=== PATIENT | male | born 1985 | race Caucasian/White ===

== ENCOUNTER 2016-12-15 06:09 | Day surgery (SDC) | payer OTHER ==
[2016-12-15] MEDS ORDERED: ceFAZolin 2 GM/50 ML 50 ML IV ONE (06:30)
[2016-12-15] MEDS ORDERED: ACETAMINOPHEN 1,000 MG/100 ML 100 ML IV ONE (06:30)
[2016-12-15] MEDS ORDERED: CELECOXIB 100 MG CAPSULE PO ONE (06:31)
[2016-12-15] MEDS ORDERED: LACTATED RINGERS 1,000 ML IV ONE (06:45)
[2016-12-15] MEDS ORDERED: SCOPOLAMINE PATCH TOP ONE (07:19)
[2016-12-15] MEDS ORDERED: ROPIVACAINE 0.2% PF 10 ML VIAL SUBQ ONE ×2 (07:24→09:03)
[2016-12-15] MEDS ORDERED: BUPIVACAINE 0.5% PF 10 ML VIAL IM ONE ×3 (07:24→09:03)
[2016-12-15] MEDS ORDERED: MORPHINE PF 5 MG/10 ML AMP SUBQ ONE ×2 (07:24→09:03)
[2016-12-15] MEDS ORDERED: PROPOFOL 200 MG/20 ML VIAL IVP ONE (08:00)
[2016-12-15] MEDS ORDERED: LIDOCAINE-MPF 2% 5 ML VIAL IM ONE (08:00)
[2016-12-15] MEDS ORDERED: ONDANSETRON 4 MG/2 ML VIAL IVP ONE (08:00)
[2016-12-15] MEDS ORDERED: DEXAMETHASONE 4 MG/ML VIAL IVP ONE (08:00)
[2016-12-15] MEDS ORDERED: HYDROmorphone 1 MG/ML SYRINGE IVP ONE (08:00)
[2016-12-15] MEDS ORDERED: MIDAZOLAM 2 MG/2 ML VIAL IVP ONE (08:00)
[2016-12-15] MEDS: fentaNYL 100 MCG/2 ML VIAL ONE ×2 (09:38→09:45)
[2016-12-15] MEDS ORDERED: oxyCOD/ACETAMIN 5 MG/325 MG TABLET PO ONE ×2 (10:12→10:37)
[2016-12-15 11:50] VITALS: BP 124/68
--- NOTE | 2016-12-18 07:50 | OPERATIVE REPORT ---
DATE OF SURGERY: 12/15/2016 00:00:00 ID #: [id number]. SURGEON: Commander Kedar Fry, Medical [facility] PREOPERATIVE DIAGNOSIS: Right knee medial meniscus tear and plica impingement. OPERATIVE DIAGNOSIS: Right knee medial meniscus tear and plica impingement with a patellar tendinosis. OPERATIVE PROCEDURE PERFORMED: Right knee arthroscopic medial meniscus debridement, plica resection, and open patellar tendon debridement. ANESTHESIA PROVIDER: Georgia oHlloway MD ANESTHESIA TECHNIQUE: General anesthesia via LMA with local anesthesia at the incision site. CIRCULATING NURSE: Lm Hilton RN; and Lalo Li RN THERMOMETER TESTER: Ms. Baig; and Nataliya Mitchell. START TIME: 0803 hours. END TIME: 0858 hours. INJECTED SUBSTANCES INCLUDE: Marcaine 0.5% plain injected at the portal prior to incision. Additional injected substances ropivacaine 0.2% with Duramorph morphine 5 mg injected intraarticularly after closure of portal sites for postoperative pain control. FLUIDS: Lactated Ringer's 50 mL. PREOPERATIVE ANTIBIOTICS: Ancef 2 grams. ESTIMATED BLOOD LOSS: 5 mL. PREOPERATIVE PREP: Hibiclens followed by ChloraPrep applied to the exposed operative skin after draping. The patient had right lower extremity FRAN hose and foot pump in place that was functioning prior to induction of anesthesia. TOURNIQUET TIME: 30 minutes at 250 mmHg for the open patellar tendon debridement portion of the case. COMPLICATIONS: None. FINAL COUNTS: Correct. 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 The patient was counseled as far as the findings and options for operative versus nonoperative management, including the risks, benefits, alternatives, and expectations to both operative and nonoperative management. He preferred to have surgery. He received command authorization for surgery. On the day of surgery, he identified the operative site to be his left knee; it was initialed by the operative surgeon. He then was taken back to the operating room, placed in a supine position, and underwent general anesthesia. After adequate anesthetic control, the patient had a tourniquet placed to the left upper thigh. The left lower extremity underwent examination under anesthesia, revealing full passive range of motion, stable anterior and posterior drawer, stable Rick's , negative pivot shift or glide, stable varus and valgus stress at 0 and 30 degrees. The patient then underwent Hibiclens prep and standard sterile draping , followed by a surgical pause to confirm the correct patient, procedure, operative site, position, prophylactic antibiotics, surgical initials, and surgical instrumentation in accordance with the [place] Protocol Procedure Verification. Next ChloraPrep was applied to the exposed operative skin and allowed to dry for 3 minutes. The bony landmarks were outlined with a skin marker. The surgery began with a stab incision over the anterolateral knee after the portals were injected with 0.5% Marcaine plain. The arthroscope was placed into the suprapatellar pouch, where diagnostic arthroscopy began, revealing normal- appearing medial, central, and lateral patellar chondral facet surfaces; normal- appearing trochlea; normal-appearing patellofemoral articulation and tracking. The lateral gutter was entered. There were no signs of synovitis or loose bodies. The posterolateral corner and lateral gutter was appeared normal. The medial gutter was then entered after bypassing the medial plica. There were no signs of synovitis or loose bodies. The medial compartment was entered under a valgus stress. Under direct visualization, a spinal needle was inserted to establish the location of the anteromedial portal. A stab incision was then made , followed by placement of a probe. Probing the posterior horn medial meniscus revealed a complex medial meniscus tear. There were no signs of medial femoral condyle or medial tibial plateau chondromalacia. Following this, the femoral notch was entered. The ACL was probed and visualized without sign of tear. The lateral compartment was entered under a figure 4 position. The lateral meniscus was probed and visualized, and there were no signs of lateral meniscus tear or instability. The knee was taken through full range of motion, and there were no signs of lateral femoral condyle or lateral tibia plateau chondromalacia. Following this, the scope was placed back in the suprapatellar pouch where the medial plica resection was performed, and then subsequently into the medial compartment, where medial meniscus debridement was performed back to a stable rim using a Ava set and the shaver. The instruments were then removed from the patient's knee. The fluid was allowed to extravasate out. he incisions were then closed with 3-0 Monocryl. The knee was then injected with ropivocaine and duramorph. The wounds were then covered with Mastisol, Steri-Strips, Xeroform, sterile plain gauze, sterile Webril, and Kane bandage from mid foot to mid thigh, followed by a cold therapy cuff and placed into a knee immobilizer set 0-30 degrees. The patient tolerated the procedure well, was extubated in the operating room, and taken to the recovery room in a stable condition. The patient's was met in the surgical waiting room and advised of the intraoperative findings, procedure performed, and postop instructions. Edited and electronically signed: CDR Kedar Fry MC, USN [id number] JOB #: [id number] EXT JOB #:[id number] CHUYITA
== END 2016-12-15 06:10 | disposition home or self-care (01) ==
LOC: SDS 06:09
PROVIDERS: ATTEND Orthopaedic Surgery
PROC: 0SBD4ZZ Excision of Left Knee Joint, Percutaneous Endoscopic Approach (ICD-10-PCS; principal; 2016-12-15 07:30)
PROC: 0LBQ0ZZ Excision of Right Knee Tendon, Open Approach (ICD-10-PCS; 2016-12-15 07:30)
DX: S83.242A Other tear of medial meniscus, current injury, left knee, initial encounter (principal); M25.862 Other specified joint disorders, left knee; M76.52 Patellar tendinitis, left knee; X58.XXXA Exposure to other specified factors, initial encounter
CPT/HCPCS: 11043; 29881; A9270; J0131; J0690; J1170; J3490; J7120

== ENCOUNTER 2018-11-30 06:23 | Day surgery (SDC) | payer OTHER ==
[~2018-11-30 06:23] MED LIST: cefTRIAXone 2 GM VIAL ONE
[2018-11-30] MEDS ORDERED: LACTATED RINGERS 1,000 ML IV ONE ×2 (07:06→09:37)
[2018-11-30] MEDS ORDERED: BUPIVACAINE 0.25% PF 10 ML VIAL ONE (07:24)
--- NOTE | 2018-11-30 07:38 | ANESTHESIA ---
Pre-Anesthesia VS, & Labs - Diagnosis Suture granuloma Left knee - Procedure Excise suture granuloma left knee Vital Signs: Temp Pulse Resp BP Pulse Ox 36.4 C L 67 18 115/80 99 11/30/18 06:30 11/30/18 06:30 11/30/18 06:30 11/30/18 06:30 11/30/18 06:30 Height 6 ft 3 in Weight (kg) 108.86 kg - NPO >8 hours Home Medications and Allergies Home Medications: Ambulatory Orders Albuterol Sulfate [Albuterol Sulfate Hfa] 8.5 gm IH 11/28/18 Montelukast [Singulair] 10 mg PO QPM 11/28/18 Omeprazole 20 mg PO 11/28/18 Sertraline HCl [Zoloft] 150 mg PO 11/28/18 Trazodone HCl 50 mg PO PRN 11/28/18 buPROPion [Wellbutrin Xl] 150 mg PO DAILY 11/28/18 clonazePAM [Clonazepam] 0.5 mg PO PRN 11/28/18 Albuterol Sulfate [Albuterol Sulfate Hfa] 8.5 gm IH 11/28/18 Montelukast [Singulair] 10 mg PO QPM 11/28/18 Omeprazole 20 mg PO 11/28/18 Sertraline HCl [Zoloft] 150 mg PO 11/28/18 Trazodone HCl 50 mg PO PRN 11/28/18 buPROPion [Wellbutrin Xl] 150 mg PO DAILY 11/28/18 clonazePAM [Clonazepam] 0.5 mg PO PRN 11/28/18 Allergies/Adverse Reactions: Allergies Allergy/AdvReac Type Severity Reaction Status Date / Time kiwi AdvReac Itching Verified 11/28/18 15:53 Anes History & Medical History - Anesthetic History Anesthesia Complications: reports: No previous complications, Other-see comment (Nauseated after surgery) Family history of Anesthesia Complications: Denies Family history of Malignant Hyperthermia: Denies - Medical History Cardiovascular: reports: None Pulmonary: reports: Sleep apnea, Other (Asthma, loud snoring) Gastrointestinal: reports: GERD, Other (Sleeps with head elevated) Urinary: reports: None Neuro: reports: None, Other (Patient stated he may have had head injury due to hole in left eye near retina) Musculoskeletal: reports: None, Other Endocrine/Autoimmune: reports: None Blood Disorders: reports: None Skin: reports: None Smoking Status: Never smoker Psychosocial: reports: Depression - Surgical History Orthopedic: Other Exam General: Alert Dental: TMJ Mouth Openin Fingerbreadth Neck Mobility: Normal Mallampati classification: I Thyromental Distance: greater than 6 cm Respiratory: Lungs clear, Normal breath sounds Cardiovascular: Regular rate Neurological: Normal speech Mental/Cognitive Status: Alert/Oriented X3 Cognitive Status: Within normal limits Plan Anesthesia Type: General Consent for Procedure(s) Verified and Reviewed: Yes Code Status: Attempt Resuscitation ASA classification: 2-Mild systemic disease Is this case an emergency?: No
[2018-11-30] MEDS ORDERED: DEXMEDETOMIDINE 400 MCG/100 ML 100 ML IV ONE (07:57)
[2018-11-30] MEDS ORDERED: BUPIVACAINE 0.25% PF 30 ML VIAL SUBQ ONE ×2 (09:17→10:20)
[2018-11-30] MEDS ORDERED: KETOROLAC 30 MG/ML VIAL IVP ONE (10:34)
[2018-11-30] MEDS ORDERED: fentaNYL 100 MCG/2 ML VIAL IVP ONE (10:34)
[2018-11-30] MEDS ORDERED: DEXAMETHASONE 4 MG/ML VIAL IVP ONE (10:34)
[2018-11-30] MEDS ORDERED: PROPOFOL 200 MG/20 ML VIAL IVP ONE (10:34)
[2018-11-30] MEDS ORDERED: MIDAZOLAM 2 MG/2 ML VIAL IVP ONE (10:34)
[2018-11-30] MEDS ORDERED: ONDANSETRON 4 MG/2 ML VIAL IVP ONE (10:34)
[2018-11-30] MEDS ORDERED: HYDROcod/ACETAM 5/325 MG TABLET PO PRN (10:50)
[2018-11-30] MEDS ORDERED: ONDANSETRON 4 MG/2 ML VIAL IVP PRN (10:50)
--- NOTE | 2018-11-30 11:06 | OPERATIVE REPORT ---
Operative Report - General Procedure Date: 11/30/18 Planned Procedure: Left knee soft tissue excision, possible arthroscopy Pre-Op Diagnosis: Intermittent Superficial left knee cyst Procedure Performed: Left knee soft tissue excision, irrigation and debridement, scar revision Post Op Diagnosis: Left knee superficial soft tissue mass/cyst - Procedure Note Primary Surgeon: PARRISH MCWILLIAMS Anesthesia Technique: General LMA Estimated Blood Loss (mL): 25 - Other Other Information/Narrative: Tourniquet Time: Approximately 24 minutes at 250mmHg. Specimen(s) Information: Left knee, superficial soft tissue excised en bloc, divided and sent for permanent pathology, and aerobic, anaerobic, acid-fast, and fungal cultures. 2 sets of 2 culture swabs sent, first set from wound bed, second set from inner surface of resected tissue following division Complication(s): None Condition: Stable to recovery Indications for Surgery: The patient is a 33-year-old Right hand dominant male with a history of left knee arthroscopy, medial meniscal meniscal debridement, synovial plica resection, and open patellar tendon debridement by Dr. Fry in November 2016. His postoperative course was complicated by presumptive Vicryl suture abscess, for which he underwent a clinic irrigation and debridement in 2016. Cultures obtained at that time grew scant Enterobacter aerogenes that was resistant to cefazolin, but sensitive to ceftriaxone. Since that time, he is overall done well, however every 3 to 4 months, he reports that a pustule forms over the anterior knee underneath the surgical scar, forms ahead, and then spontaneously drains he describes the draining fluid is watery and white. He denies any associated erythema, fever, chills, and denies any swelling redness or restricted motion of the knee. He does have occasional medial lateral joint line pain, but this is typically transient and usually activity related without any swelling or effusion. Ultrasound demonstrated a small fluid collection within the anterior knee soft tissues superficial to the patellar tendon, consistent with the area of interest. He was interested in treatment of the cyst/mass, so as to prevent recurrence. We had a lengthy discussion in clinic about continued nonoperative management, consisting of observation versus operative intervention, with the proposed surgical plan of scar revision and excision of the area in question en bloc, with possible left knee arthroscopic I&D, should the mass/cyst tract into or through the patellar tendon. Risks of surgery were discussed to include bleeding, infection, postoperative stiffness, mass recurrence, damage to nerves, vessels, tendons, ligaments, bone and cartilage and anesthesia complications to include medication side effects and allergic reactions and . After discussion, they wished to proceed. Descriptions of Procedure: The patient was met in the Preoperative Holding Area, at which time preoperative paperwork was confirmed. The left knee was signed. The patient was then brought to Main Operating Room, placed supine on the Operating Room table, at which time pre procedure timeout was conducted to confirm correct patient, correct extremity and correct procedure and also to confirm presence and sterility of all required equipment and to confirm that antibiotics were being administered consisting of 2 g Rocephin, IV. After this was confirmed, general anesthesia was induced. The operative extremity was then prepped and draped in the normal sterile fashion after a well-padded tourniquet was placed on the proximal thigh. A final timeout was conducted to confirm the correct patient, correct extremity and correct procedure and to confirm that antibiotics had been administered within 30 minutes of incision time. The operative extremity was then exsanguinated with an Esmarch bandage (taking care not to compress the area of interst over the anterior knee) and the tourniquet inflated to 250mmHg. A longitudinal incision, utilizing the proximal and distal extents of the previous scar with an approximately 2 cm long by 1 cm wide ellipse over the area of concern was made with a #15 blade through the skin. Dissection was further carried out with a 15 blade and tenotomy scissors until the fascia overlying the patellar tendon was reached, the ellipsed area of tissue was then circumferentially dissected and removed from the wound bed. There did not appear to be any communication or violation of the patellar tendon sheath or patellar tendon. No purulence was observed, tissue appeared grossly normal. Deep cultures were taken with a swab following excision of the soft tissue block. Small full-thickness skin flaps were developed to allow improved tissue mobility for wound edge reapproximation, and the wound was then copiously irrigated with 2 L of normal saline. All of the previously used instruments were set aside on a "dirty" Garcia stand, and clean instruments were used for the remainder of the case. Hemostasis was ensured using electrocautery after the tourniquet was deflated. The wound was again irrigated, the tissue was closed in layers using 2-0 Monocryl interrupted sutures for the deep tissue layer, followed by 3-0 Monocryl interrupted superficially and a running 3-0 Monocryl that was oversewn with 3-0 nylon horizontal and vertical mattress interrupted sutures. 20 mL of quater percent plain Marcaine were injected around the incision. The wound was dressed with steri-strips, xeroform, plain 4x4 gauze, ABD, and webril, followed by a gently compressive Kane bandage. A FRAN compression stocking was applied. The patient was then awakened from general anesthesia without complication, brought to the Post Anesthesia Care for further recovery. Postoperative Plan: 1. The patient will be discharged from the Same Day Surgery Unit when discharge criteria are met. 2. The patient will remain in the post-operative dressing for 3 days. 3. Protected weight bearing with crutches until gait normalizes, WBAT, ROMAT 4. F/U cultures and path 5. Follow-up in clinic in 7-10 days for a wound check 6. Expect return to full activites in 4-6 weeks.
[2018-11-30] MEDS ORDERED: HYDROcod/ACETAM 5/325 MG TABLET ONE (11:34)
[2018-11-30 11:51] VITALS: BP 99/63
== END 2018-11-30 06:24 | disposition home or self-care (01) ==
LOC: SDS 06:23
PROVIDERS: ATTEND Orthopaedic Surgery
PROC: 0HBLXZZ Excision of Left Lower Leg Skin, External Approach (ICD-10-PCS; 2018-11-30)
PROC: 0JQP0ZZ Repair Left Lower Leg Subcutaneous Tissue and Fascia, Open Approach (ICD-10-PCS; principal; 2018-11-30 07:30)
DX: L76.82 Other postprocedural complications of skin and subcutaneous tissue (principal); L90.5 Scar conditions and fibrosis of skin; Y83.8 Other surgical procedures as the cause of abnormal reaction of the patient, or of later complication, without mention of misadventure at the time of the procedure; K21.9 Gastro-esophageal reflux disease without esophagitis; F41.9 Anxiety disorder, unspecified; G47.33 Obstructive sleep apnea (adult) (pediatric); H91.90 Unspecified hearing loss, unspecified ear; Z79.51 Long term (current) use of inhaled steroids; Z79.82 Long term (current) use of aspirin; Z79.1 Long term (current) use of non-steroidal anti-inflammatories (NSAID)
CPT/HCPCS: 11402; 12031; A9270; J7120; 87205